=== PATIENT | male | born 1960 | race Caucasian/White ===

== ENCOUNTER 2017-01-13 05:59 | Day surgery (SDC) | payer MEDICARE, BC ==
[2017-01-13] MEDS ORDERED: Lactated Ringers 1,000 ML IV SCH (06:30)
--- NOTE | 2017-01-13 09:30 | OP ---
SURGERY DATE/TIME: 01/13/2017 0757 PREOPERATIVE DIAGNOSIS: Polyp surveillance. POSTOPERATIVE DIAGNOSIS: Multiple polyps in the ascending and transverse colon. PROCEDURE: Colonoscopy with polypectomy. SURGEON: Dr. Kebede. ANESTHESIA: MAC. Medications given by anesthesia department. HISTORY: The patient is a 56 year-old white male patient presenting now for colonoscopy for polyp surveillance. He had polyps when he previously had colonoscopy approximately five years ago. The patient was reappraised of the risks of the procedure including the risk of perforation, phlebitis, untoward reaction to medication, bleeding and missed lesions. The patient verbalized his understanding and desired to have the procedure performed. DESCRIPTION OF PROCEDURE: The patient was given the medications by the anesthesia department. He had continuous pulse oximetry, ECG monitoring, intermittent blood pressure monitoring and tidal CO2 monitoring during the examination. He was placed in the left lateral decubitus position. A digital rectal examination was performed and revealed normal anal sphincter tone and no masses and normal prostate. The flexible Olympus pediatric colonoscope was used to intubate the rectum. A view of the colon was developed sequentially to the cecum. There was noted one small diminutive polyp that was biopsied using hot biopsy technique in the cecum. There was noted to be a larger polyp approximately 1.75 cm pedunculated in the proximal transverse colon and this was removed using polypectomy snare and retrieved for pathologic evaluation. There was also noted another polyp what was felt to be the descending colon and this was also removed using polypectomy snare, this was a sessile type and was also removed using polypectomy snare retrieved for pathologic evaluation. Upon insertion and withdrawal, including a retroflex view in the rectum, no mucosal lesions being encountered. The scope was removed from the patient who tolerated the procedure well and was sent back to OP recovery in good condition. The prep was noted to be fair to good.
[2017-01-13 09:53] VITALS: O2SAT 95
[2017-01-13 09:55] VITALS: BP 129/80; PULSE 59
[2017-01-13] MEDS ORDERED: DIPRIVAN 200 MG/20 ML IV ONE (13:24)
[2017-01-13] MEDS ORDERED: Ketamine HCl 50 MG/ML IJ ONE (13:24)
== END 2017-01-13 09:40 | disposition home or self-care (01) ==
LOC: SDC 05:59
PROVIDERS: ATTEND Family Medicine
PROC: 0DBK8ZX Excision of Ascending Colon, Via Natural or Artificial Opening Endoscopic, Diagnostic (ICD-10-PCS; principal; 2017-01-13)
PROC: 0DBL8ZX Excision of Transverse Colon, Via Natural or Artificial Opening Endoscopic, Diagnostic (ICD-10-PCS; 2017-01-13)
PROC: 0DBH8ZX Excision of Cecum, Via Natural or Artificial Opening Endoscopic, Diagnostic (ICD-10-PCS; 2017-01-13)
DX: D12.2 Benign neoplasm of ascending colon (principal); D12.3 Benign neoplasm of transverse colon; Z12.11 Encounter for screening for malignant neoplasm of colon; K63.5 Polyp of colon; Z86.010 Personal history of colon polyps
CPT/HCPCS: 00810; 36415; 82962; 88305; J2704